=== PATIENT | male | born 1970 | race Caucasian/White ===

== ENCOUNTER 2022-09-29 01:13 | Day surgery (SDC) | payer OTHER, SELFPAY ==
[2022-09-15 14:00] VITALS: BMI 33.5
[2022-09-29 06:47] VITALS: BP 133/81; PULSE 68; RESP 16; TEMP 36.4; O2SAT 97; BMI 33.6
[2022-09-29] MEDS: LACTATED RINGERS 1,000 ML 150 ML IV CONT (06:55)
--- NOTE | 2022-09-29 07:05 | P.PNAN_ITS ---
Anes - Initial Pre Proc Eval Procedure: Operation Date: 09/29/22 08:00 Proposed Procedures p Colonoscopy - Raf Vogel MD Date/Time: 09/29/22 07:05 Surgeon: Raf Vogel MD Pre Op Diagnosis: hx of colon polyps Patient Data Age: 52 Gender: M Height: 1.8 m Weight: 109.5 kg Last Vital Signs Temp 36.4 C L 09/29/22 06:47 Pulse 68 09/29/22 06:47 Resp 16 09/29/22 06:47 BP 133/81 09/29/22 06:47 Pulse Ox 97 09/29/22 06:47 O2 Del Method Room Air 09/29/22 06:47 Allergies Allergy/AdvReac Type Severity Reaction Status Date / Time No Known Allergies Allergy Verified 09/29/22 06:45 Home Medications Medication Instructions Recorded Confirmed Type dulaglutide 0.75 mg/0.5 mL 0.75 mg subcut WEEKLY 09/15/22 09/29/22 History subcutaneous pen injector (Trulicity) Patient hx anesthesia problems: none Family hx anesthesia problems: none Results Review: All pre-operative results and documents have been reviewed as part of the pre- operative evaluation. [facility] Past Medical History Medical History (Updated 09/29/22 @ 07:07 by Sumit Orellana MD) Obesity DEANDRE (obstructive sleep apnea) Surgical History Surgical History (Updated 09/29/22 @ 07:08 by Sumit Orellana MD) H/O colonoscopy Social History Social History Smoking status: Never smoker Alcohol intake: never Substance use: never Substance use type: does not use Living arrangements: with family Spiritual care concerns: No Anes - Eval Final PreProcedure Day of Procedure 09/29/22 07:05 Patient weight: obese Heart: regular rate and rhythm Lungs: clear to auscultation Airway: Mallampati scale class II Neurological: alert and oriented Last oral intake: >/= 8 hours ASA classification: III Emergent: no Anesthetic plan: proceed Anesthesia type and monitoring: general GIVS and standard monitoring Results Review: All pre-operative results and documents have been reviewed as part of the pre- operative evaluation. Informed Consent: The patient's anesthetic plan and its attendant risks and benefits were discussed with the patient/family/POA. Questions were solicited and answers provided to the satisfaction of the patient/family/POA.
--- NOTE | 2022-09-29 07:59 | PM.HPGS ---
History of Present Illness History of Present Illness Consent: Risks, benefits, and alternatives have been discussed and questions answered. Patient agrees to proceed with procedure. Chief complaint: hx of colon polyps Narrative: Alonzo Wiggins is a 52 year old male with colon polyp in 2019 Review of Systems Constitutional: Constitutional: Denies headache(s) and Denies weakness Eyes: Eyes: Denies blurry vision ENT: Reports Normal hearing present, Denies headache(s) and Denies neck pain Cardiovascular: Cardiovascular: Denies chest pain and Denies dyspnea Respiratory: Respiratory: Denies dyspnea Gastrointestinal: Gastrointestinal: Reports no additional gastrointestinal complaints Genitourinary: Genitourinary: Denies dysuria Musculoskeletal: Musculoskeletal: Denies neck pain Integumentary/Breasts: Skin/Breast: Denies dry skin Neurologic: Reports Normal hearing present, Denies headache(s) and Denies weakness Psychiatric: Psychiatric: Denies anxiety Endocrine: Endocrine: Denies change in body appearance Hematologic/Lymphatic: Hematologic/Lymphatic: Denies easy bleeding Allergic/Immunologic: Allergic/Immunologic: Denies urticaria [facility] Past Medical History Medical History (Updated 09/29/22 @ 07:59 by Raf Vogel MD) Colon polyp Obesity DEANDRE (obstructive sleep apnea) Surgical History Surgical History (Updated 09/29/22 @ 07:08 by Sumit Orellana MD) H/O colonoscopy Social History Social History Smoking status: Never smoker Alcohol intake: never Substance use: never Substance use type: does not use Living arrangements: with family Spiritual care concerns: No Meds Home Medications and Allergies Home Medications Medication Instructions Recorded Confirmed Type dulaglutide 0.75 mg/0.5 mL 0.75 mg subcut WEEKLY 09/15/22 09/29/22 History subcutaneous pen injector (Trulicity) Allergies Allergy/AdvReac Type Severity Reaction Status Date / Time No Known Allergies Allergy Verified 09/29/22 06:45 Vital Signs Vital Signs - 24 hr 09/29/22 06:47 Temperature 97.5 F L Pulse Rate 68 Respiratory Rate 16 Blood Pressure 133/81 Pulse Oximetry 97 Oxygen Delivery Room Air Exam Const: General: comfortable and no acute distress HENMT: Face/Nose/Sinus: Normal nares present Eyes: General: appearance normal, both eyes and all related structures Neck: Neck: no JVD Resp: Auscultation: clear to auscultation bilaterally Cardio: Rate: regular rate Rhythm: regular rhythm GI: Inspection: non-distended GI Palp: Yes Soft to palpation Skin: General skin exam: normal color Neuro: General: gait normal Speech: normal speech Extrem: General: normal to inspection Psych: Mental Status: mental status grossly normal Assessment and Plan Assessment and plan (1) Colon polyp: Code(s): K63.5 - Polyp of colon Status: Acute Assessment and Plan: colonoscopy
[2022-09-29 08:22] VITALS: BP 105/78; PULSE 63; RESP 15; O2SAT 95
[2022-09-29 08:32] VITALS: BP 122/67; PULSE 61; RESP 18; O2SAT 95
[2022-09-29 08:42] VITALS: BP 177/77; PULSE 60; RESP 17; O2SAT 96
== END 2022-09-29 08:49 | disposition home or self-care (01) ==
PROVIDERS: PCP Emergency Medicine; Visit Provider Internal Medicine Gastroenterology
PROC: 0DJD8ZZ Inspection of Lower Intestinal Tract, Via Natural or Artificial Opening Endoscopic (ICD-10-PCS; CPT 45378; principal; 2022-09-29 08:00)
DX: Z12.11 Encounter for screening for malignant neoplasm of colon (principal); K64.8 Other hemorrhoids; Z86.010 Personal history of colon polyps; G47.33 Obstructive sleep apnea (adult) (pediatric); Z79.899 Other long term (current) drug therapy; E66.9 Obesity, unspecified; Z68.33 Body mass index [BMI] 33.0-33.9, adult
CPT/HCPCS: 45378; J2704; J7120